=== PATIENT | female | born 1960 | race Caucasian/White ===

== ENCOUNTER 2021-09-14 13:39 | Outpatient (CLI) | payer BC | END 2021-09-14 13:40 | disposition home or self-care (01) | LOC: CSHMAMMO 13:39 | PROVIDERS: ATTEND Internal Medicine | DX: Z12.31 Encounter for screening mammogram for malignant neoplasm of breast (principal) | CPT/HCPCS: 77063; 77067 ==

== ENCOUNTER 2022-10-12 14:52 | Outpatient (CLI) | payer BC | END 2022-10-12 14:53 | disposition home or self-care (01) | LOC: CSHMAMMO 14:52 | PROVIDERS: ATTEND Internal Medicine | DX: Z12.31 Encounter for screening mammogram for malignant neoplasm of breast (principal); R92.8 Other abnormal and inconclusive findings on diagnostic imaging of breast | CPT/HCPCS: 77063; 77067 ==

== ENCOUNTER 2022-11-08 13:15 | Outpatient (CLI) | payer BC | END 2022-11-08 13:16 | disposition home or self-care (01) | LOC: CSHULT 13:15 | PROVIDERS: ATTEND Internal Medicine | DX: E04.1 Nontoxic single thyroid nodule (principal); E04.2 Nontoxic multinodular goiter | CPT/HCPCS: 76536 ==

== ENCOUNTER 2022-11-23 13:31 | Outpatient (CLI) | payer BC | END 2022-11-23 13:32 | disposition home or self-care (01) | LOC: CSHMAMMO 13:31 | PROVIDERS: ATTEND Internal Medicine | DX: R92.8 Other abnormal and inconclusive findings on diagnostic imaging of breast (principal) | CPT/HCPCS: G0279 ==

== ENCOUNTER 2023-05-31 14:03 | Outpatient (CLI) | payer BC | END 2023-05-31 14:04 | disposition home or self-care (01) | LOC: CSHMAMMO 14:03 | PROVIDERS: ATTEND Internal Medicine | DX: R92.8 Other abnormal and inconclusive findings on diagnostic imaging of breast (principal); N64.89 Other specified disorders of breast | CPT/HCPCS: G0279 ==

== ENCOUNTER → 2023-06-11 | Day surgery (SDC) | payer BC | LOC: CSHMAMMO 07:38 | PROVIDERS: ATTEND Internal Medicine | PROC: 0H9U3ZX Drainage of Left Breast, Percutaneous Approach, Diagnostic (ICD-10-PCS; principal; 2023-06-11) | DX: C50.412 Malignant neoplasm of upper-outer quadrant of left female breast (principal) | CPT/HCPCS: 19081; 76098; 88305; 88341; 88342 ==

== ENCOUNTER 2023-07-03 08:01 | Outpatient (CLI) | payer BC ==
[2023-07-03 10:25] LABS: Anion Gap 15 mmol/L (10-20); BUN (Urea Nitrogen) 13 mg/dL (9.8-20.1); Calc. Creatinine Clearance 0 mL/min (70-130); Calcium 9.4 mg/dL (7.8-10.44); Carbon Dioxide 25 mmol/L (23-31); Chloride 104 mmol/L (98-107); Estimated GFR 97; Glucose 77 mg/dL (80-115); Potassium 4.5 mmol/L (3.5-5.1); Sodium 139 mmol/L (136-145)
== END 2023-07-03 08:02 | disposition home or self-care (01) ==
LOC: CSHLAB 08:01
PROVIDERS: ATTEND Surgery
DX: Z01.818 Encounter for other preprocedural examination (principal)
CPT/HCPCS: 80048; 93005; 93010

== ENCOUNTER 2023-07-05 07:37 | Day surgery (SDC) | payer BC ==
[2023-07-03 08:17] VITALS: BMI 23.6
[2023-07-05] MEDS ORDERED: fentaNYL 50 mcg/mL 1 mL Vial ONE (10:06)
[2023-07-05] MEDS ORDERED: PROPOFOL 20 ML ONE ×2 (10:06→11:04)
[2023-07-05] MEDS ORDERED: Lidocaine 1% PF 5 ML VIAL ONE (10:07)
[2023-07-05] MEDS ORDERED: EPINEPHrine 1 MG/ML VIAL ONE (10:16)
[2023-07-05] MEDS ORDERED: Isosulfan Blue 50 MG/5 ML VIAL ONE (10:17)
[2023-07-05] MEDS ORDERED: Bupivacaine PF 0.5% 30 ML VIAL ONE (10:17)
[2023-07-05] MEDS ORDERED: CEFAZOLIN 2 GM VIAL ONE (10:34)
[2023-07-05] MEDS ORDERED: Dexamethasone 20 MG/5 ML VIAL ONE (11:08)
[2023-07-05] MEDS ORDERED: ePHEDrine Sulfate 50 MG/10 ML VIAL ONE (11:27)
[2023-07-05] MEDS ORDERED: Ondansetron PF 4 MG/2 ML Vial ONE (11:53)
[2023-07-05] MEDS ORDERED: Acetaminophen 325 MG TAB PO PRN (12:21)
[2023-07-05] MEDS ORDERED: HYDROcodone/Acetaminophen 5/325 mg Tablet PO PRN (12:21)
== END 2023-07-05 13:35 | disposition home or self-care (01) ==
LOC: CSHSDC 07:37
PROVIDERS: ATTEND Surgery
PROC: 07B60ZZ Excision of Left Axillary Lymphatic, Open Approach (ICD-10-PCS; principal; 2023-07-05)
PROC: 0HBU0ZZ Excision of Left Breast, Open Approach (ICD-10-PCS; principal; 2023-07-05)
DX: C50.812 Malignant neoplasm of overlapping sites of left female breast (principal); Z17.0 Estrogen receptor positive status [ER+]; I10 Essential (primary) hypertension; G43.909 Migraine, unspecified, not intractable, without status migrainosus; R01.1 Cardiac murmur, unspecified; Z79.899 Other long term (current) drug therapy; Z87.891 Personal history of nicotine dependence; Z90.710 Acquired absence of both cervix and uterus
CPT/HCPCS: 19281; 76098; 78195; 88307; 88342; A9541; C1713; J0171; J1100; J2405; J2704; J3010; Q9968; S0020

== ENCOUNTER 2023-07-18 12:00 | Day surgery (SDC) | payer BC ==
[2023-07-18] MEDS ORDERED: PROPOFOL 20 ML ONE (13:37)
[2023-07-18] MEDS ORDERED: Sevoflurane 250 ML INH ANEST BOTTLE ONE (13:42)
[2023-07-18] MEDS ORDERED: fentaNYL 50 mcg/mL 1 mL Vial ONE ×2 (13:42)
[2023-07-18] MEDS ORDERED: Bupivacaine PF 0.5% 30 ML VIAL ONE (13:43)
[2023-07-18] MEDS ORDERED: CEFAZOLIN 2 GM VIAL ONE (13:46)
[2023-07-18] MEDS ORDERED: Ondansetron PF 4 MG/2 ML Vial ONE (14:10)
[2023-07-18] MEDS ORDERED: Dexamethasone 20 MG/5 ML VIAL ONE (14:10)
[2023-07-18] MEDS ORDERED: Ketorolac Tromethamine 30 MG (1 mL) VIAL ONE (14:11)
[2023-07-18] MEDS ORDERED: ePHEDrine Sulfate 50 MG/10 ML VIAL ONE (14:22)
[2023-07-18] MEDS ORDERED: EPINEPHrine 1 MG/ML AMP ONE (14:31)
[2023-07-18] MEDS ORDERED: HYDROcodone/Acetaminophen 5/325 mg Tablet PO PRN (15:16)
[2023-07-18] MEDS ORDERED: Acetaminophen 325 MG TAB PO PRN (15:16)
== END 2023-07-18 15:50 | disposition home or self-care (01) ==
LOC: CSHSDC 12:00
PROVIDERS: ATTEND Surgery
PROC: 0HBU0ZZ Excision of Left Breast, Open Approach (ICD-10-PCS; principal; 2023-07-18)
DX: C50.112 Malignant neoplasm of central portion of left female breast (principal); I10 Essential (primary) hypertension; Z87.891 Personal history of nicotine dependence; R01.1 Cardiac murmur, unspecified; Z90.710 Acquired absence of both cervix and uterus; Z79.899 Other long term (current) drug therapy
CPT/HCPCS: 88307; C1713; J0171; J1100; J1885; J2405; J2704; J3010; S0020

== ENCOUNTER 2024-02-07 12:48 | Outpatient (CLI) | payer BC | END 2024-02-07 12:49 | disposition home or self-care (01) | LOC: CSHULT 12:48 | PROVIDERS: ATTEND Internal Medicine | DX: E04.1 Nontoxic single thyroid nodule (principal) | CPT/HCPCS: 76536 ==

== ENCOUNTER 2024-09-18 10:03 | Outpatient (CLI) | payer BC | END 2024-09-18 10:04 | disposition home or self-care (01) | LOC: CSHMAMMO 10:03 | PROVIDERS: ATTEND Surgery | DX: I10 Essential (primary) hypertension (principal); C50.112 Malignant neoplasm of central portion of left female breast; N28.1 Cyst of kidney, acquired | CPT/HCPCS: 76770; 93976; G0279 ==